=== PATIENT | female | born 1985 | race Caucasian/White ===

== ENCOUNTER 2017-09-16 07:54 | Inpatient (IN) | payer MEDICAID, OTHER ==
[~2017-09-16] VITALS: Ht 180.3 cm; Wt 113.4 kg
[2017-09-16] MEDS ORDERED: CARBOPROST TROMETHAMINE 250 MCG/ML AMPUL IM PRN (08:30)
[2017-09-16] MEDS ORDERED: NALOXONE HCL 0.4 MG/ML 1ML VIAL IM PRN (08:30)
[2017-09-16] MEDS ORDERED: METHYLERGONOVINE MALEATE 0.2 MG/ML IM PRN (08:30)
[2017-09-16] MEDS: LACTATED RINGERS 1,000 ML IV SCH ×2 (09:08→10:04)
[2017-09-16 09:45] LABS: CLARITY URINE HAZY (CLEAR); COLOR URINE YELLOW (YELLOW); GLUCOSE URINE NEGATIVE (NEGATIVE); KETONES URINE NEGATIVE (NEGATIVE); LEUKOCYTE ESTERASE URINE 3+ (NEGATIVE); NITRITE URINE NEGATIVE (NEGATIVE); OCCULT BLOOD URINE NEGATIVE (NEGATIVE); PROTEIN URINE TRACE (NEGATIVE); SPECIFIC GRAVITY URINE 1.025 (1.005-1.030); UROBILINOGEN URINE 0.2 E.U./dL (0.2-1.0)
[2017-09-16 10:00] LABS: BASOPHILS % 0.5 % (0.0-2.0); EOSINOPHILS % 1.6 % (0.0-5.0); HEMATOCRIT. 32.4 % (36.0-48.0); HEMOGLOBIN. 10.3 g/dL (12.0-16.0); LYMPHOCYTES % 16.4 % (20.0-50.0); MEAN CORPUSCULAR HEMOGLOBIN 21.9 pg (28.0-32.0); MEAN CORPUSCULAR VOLUME 68.6 fL (81.0-99.0); MEAN PLATELET VOLUME 8.4 fl (7.4-10.4); MONOCYTES % 7.5 % (2.0-8.0); PLATELET 246 x1000/uL (130-400); RED BLOOD CELL COUNT 4.73 mill/uL (4.2-5.4)
[2017-09-16 10:02] LABS: CARBON DIOXIDE 19 mEq/L (21-32); CHLORIDE 108 mEq/L (98-107)
[2017-09-16 10:07] LABS: D-DIMER 0.96 mg/L FEU (<0.50); PARTIAL THROMBOPLASTIN TIME 27.9 sec (23.4-31.0); PROTHROMBIN TIME 10.5 sec (9.4-11.6)
[2017-09-16 10:15] LABS: *AMPHETAMINES SCREEN URINE NEGATIVE (NEGATIVE); *BARBITURATES SCREEN URINE NEGATIVE (NEGATIVE); *BENZODIAZEPINES SCREEN URINE NEGATIVE (NEGATIVE); *COCAINE SCREEN URINE NEGATIVE (NEGATIVE); CANNABINOID URINE SCREEN NEGATIVE (NEGATIVE); METHADONE URINE SCREEN NEGATIVE (NEGATIVE); OPIATES URINE SCREEN NEGATIVE (NEGATIVE); PHENCYCLIDINE URINE SCREEN NEGATIVE (NEGATIVE)
[2017-09-16 10:37] LABS: PLATELET ESTIMATE NORMAL
[2017-09-16] MEDS ORDERED: ONDANSETRON HCL 4MG/2ML VIAL ONE (11:02)
[2017-09-16] MEDS ORDERED: SODIUM CHLORIDE 0.9% 10ML VIAL ONE (11:02)
[2017-09-16] MEDS ORDERED: CEFAZOLIN SODIUM 1000MG/VIAL ONE (11:02)
[2017-09-16] MEDS ORDERED: OXYTOCIN 10 UNITS/ML 1ML ONE (11:02)
[2017-09-16] MEDS ORDERED: EPHEDRINE SULFATE 50MG/ML VIAL ONE (11:03)
[2017-09-16] MEDS ORDERED: KETOROLAC 60MG/2ML VIAL IM ONE (11:03)
[2017-09-16] MEDS ORDERED: FENTANYL CITRATE/PF 50MCG/ML 2ML VIAL ONE (11:05)
[2017-09-16] MEDS ORDERED: MORPHINE SULFATE/PF 1MG/ML 10ML AMP ONE (11:05)
[2017-09-16] MEDS ORDERED: DEXT 5%/LR + PITOCIN 20UNITS/L 1,000 ML IV SCH (12:20)
[2017-09-16] MEDS ORDERED: RHO(D) IMMUNE GLOBULIN 300 MCG/SYR IM PRN (12:30)
[2017-09-16] MEDS ORDERED: IBUPROFEN 400MG TABLET PO PRN (12:30)
[2017-09-16] MEDS ORDERED: HYDROMORPHONE HCL/PF 2MG/ML CPJ IM PRN (12:30)
[2017-09-16] MEDS ORDERED: BISACODYL 10MG SUPP PR PRN (12:30)
[2017-09-16] MEDS ORDERED: HYDROCODONE/ACETAMINOPHEN 5/325MG TABLET PO PRN (12:30)
[2017-09-16 12:44] LABS: RUBELLA IGG 98.1 IU/mL (4.99-10)
[2017-09-16 12:45] LABS: HEPATITIS B SURFACE ANTIGEN NEGATIVE
[2017-09-16] MEDS ORDERED: ONDANSETRON HCL 4MG/2ML VIAL IV PRN (13:00)
[2017-09-16] MEDS ORDERED: DIPHENHYDRAMINE 50MG/ML VIAL IM PRN (13:00)
[2017-09-16] MEDS ORDERED: NALOXONE HCL 0.4 MG/ML 1ML VIAL IV PRN (13:00)
[2017-09-16] MEDS ORDERED: BUTORPHANOL TARTRATE 2 MG/ML VIAL IV PRN (13:00)
[2017-09-16] MEDS: DEXT 5%/LR + PITOCIN 20UNITS/L 1,000 ML IV SCH ×2 (13:00→23:06)
[2017-09-16 14:50] VITALS: BP 127/63
[2017-09-16 15:10] VITALS: BP 137/75
[2017-09-16] MEDS: KETOROLAC 30MG/ML VIAL IV PRN ×2 (16:24→21:35)
[2017-09-16 19:30] VITALS: BP 129/80
[2017-09-17 00:01] VITALS: BP 118/82
[2017-09-17 04:20] VITALS: BP 119/62
[2017-09-17] MEDS: KETOROLAC 30MG/ML VIAL IV PRN (06:45)
[2017-09-17 07:02] LABS: BASOPHILS % 0.2 % (0.0-2.0); EOSINOPHILS % 1.5 % (0.0-5.0); HEMATOCRIT. 25.5 % (36.0-48.0); HEMOGLOBIN. 8.2 g/dL (12.0-16.0); LYMPHOCYTES % 17.8 % (20.0-50.0); MEAN CORPUSCULAR HEMOGLOBIN 22.1 pg (28.0-32.0); MEAN CORPUSCULAR VOLUME 68.7 fL (81.0-99.0); MEAN PLATELET VOLUME 7.9 fl (7.4-10.4); MONOCYTES % 7.9 % (2.0-8.0); NEUTROPHILS % 72.6 % (40.0-76.0); PLATELET 162 x1000/uL (130-400); RED BLOOD CELL COUNT 3.72 mill/uL (4.2-5.4); RED CELL DISTRIBUTION WIDTH 18.2 % (11.6-14.6)
[2017-09-17 07:25] VITALS: BP 113/70
[2017-09-17] MEDS ORDERED: TETANUS, DIPHTHERIA, PERTUSSIS VAC/PF 0.5ML (>7YR OLD) IM ONE (10:00)
[2017-09-17 12:00] VITALS: BP 130/72
[2017-09-17] MEDS: IBUPROFEN 800MG TABLET PO PRN ×2 (13:27→22:08)
[2017-09-17 16:05] VITALS: BP 114/71
[2017-09-17 20:40] VITALS: BP 130/82
[2017-09-18 04:45] VITALS: BP 118/75
[2017-09-18 08:30] VITALS: BP 125/70
[2017-09-18 16:54] VITALS: BP 129/81
[2017-09-18 19:30] VITALS: BP 115/75
== END 2017-09-18 19:45 | disposition home or self-care (01) | DRG 540 ==
LOC: L&D 07:54 → OBSVTOIN 07:54 → 7EST PP/OB 16:18
PROVIDERS: ADMIT Obstetrics & Gynecology; ATTEND Obstetrics & Gynecology
PROC: 10D00Z1 Extraction of Products of Conception, Low, Open Approach (ICD-10-PCS; principal; 2017-09-16 12:18)
DX: O34.219 Maternal care for unspecified type scar from previous cesarean delivery (principal); O24.420 Gestational diabetes mellitus in childbirth, diet controlled; D64.9 Anemia, unspecified; O69.81X0 Labor and delivery complicated by cord around neck, without compression, not applicable or unspecified; O99.02 Anemia complicating childbirth; O99.824 Streptococcus B carrier state complicating childbirth; Z37.0 Single live birth; Z3A.39 39 weeks gestation of pregnancy
CPT/HCPCS: 36415; 80053; 80305; 81001; 84550; 85025; 85379; 85610; 85730; 86592; 86703; 86762; 86850; 86900; 86920; 87340; 88307; A4216; J0171; J0690; J1885; J2274; J2405; J2590; J3010; J7120; A4315

== ENCOUNTER 2017-10-10 08:28 | Emergency (ER) | payer MEDICAID ==
[~2017-10-10] VITALS: Ht 180.3 cm; Wt 106.9 kg
[2017-10-10] MEDS ORDERED: MAGNESIUM/ALUMINUM HYDROXIDE/SIMETHICONE 30ML UDC PO ONE (09:15)
[2017-10-10] MEDS ORDERED: ONDANSETRON 4MG ODT PO ONE (09:15)
[2017-10-10] MEDS ORDERED: FAMOTIDINE 20MG TABLET PO ONE (09:15)
[2017-10-10 09:22] LABS: BASOPHILS % 0.4 % (0.0-2.0); EOSINOPHILS % 1.1 % (0.0-5.0); HEMATOCRIT. 36.2 % (36.0-48.0); HEMOGLOBIN. 11.6 g/dL (12.0-16.0); LYMPHOCYTES % 12.2 % (20.0-50.0); MEAN CORPUSCULAR HEMOGLOBIN 21.6 pg (28.0-32.0); MEAN CORPUSCULAR VOLUME 67.5 fL (81.0-99.0); MEAN PLATELET VOLUME 7.8 fl (7.4-10.4); NEUTROPHILS % 81.3 % (40.0-76.0); PLATELET 415 x1000/uL (130-400); RED BLOOD CELL COUNT 5.37 mill/uL (4.2-5.4); RED CELL DISTRIBUTION WIDTH 18.3 % (11.6-14.6)
[2017-10-10 09:25] LABS: CLARITY URINE CLEAR (CLEAR); COLOR URINE YELLOW (YELLOW); GLUCOSE URINE NEGATIVE (NEGATIVE); KETONES URINE NEGATIVE (NEGATIVE); LEUKOCYTE ESTERASE URINE TRACE (NEGATIVE); NITRITE URINE NEGATIVE (NEGATIVE); OCCULT BLOOD URINE NEGATIVE (NEGATIVE); PH URINE 5.5 (4.5-8.0); PROTEIN URINE 1+ (NEGATIVE); SPECIFIC GRAVITY URINE 1.023 (1.005-1.030); UROBILINOGEN URINE 0.2 E.U./dL (0.2-1.0)
[2017-10-10 09:35] LABS: CARBON DIOXIDE 24 mEq/L (21-32); CHLORIDE 105 mEq/L (98-107)
[2017-10-10 09:59] LABS: PLATELET ESTIMATE INCREASED
[2017-10-10] MEDS ORDERED: ONDANSETRON HCL 4MG/2ML VIAL IV ONE (10:15)
[2017-10-10] MEDS ORDERED: FAMOTIDINE 20MG/2ML VIAL IV ONE (10:15)
[2017-10-10] MEDS ORDERED: SODIUM CHLORIDE 0.9% 1,000 ML IV ONE (10:15)
[2017-10-10] MEDS ORDERED: DIPHENHYDRAMINE 50MG/ML VIAL IV ONE (11:00)
[2017-10-10] MEDS ORDERED: METOCLOPRAMIDE HCL 10MG/2ML VIAL IV ONE (11:00)
[2017-10-10] MEDS ORDERED: MORPHINE SULFATE 10 MG/ML CPJ IV NR (12:00)
[2017-10-10] MEDS ORDERED: ONDANSETRON HCL 4MG/2ML VIAL IV NR (12:00)
[2017-10-10 14:06] VITALS: BP 142/88
== END 2017-10-10 14:09 | disposition home or self-care (01) ==
LOC: ER 08:36
DX: K80.20 Calculus of gallbladder without cholecystitis without obstruction (principal); K21.9 Gastro-esophageal reflux disease without esophagitis; I10 Essential (primary) hypertension
CPT/HCPCS: 36415; 76705; 80053; 81001; 83690; 85025; 96361; 96374; 96375; 96376; 99285; J1200; J2270; J2405; J2765; J3490; J7030; Q0162; Z7610

== ENCOUNTER 2020-06-25 13:31 | Emergency (ER) | payer MEDICAID ==
[~2020-06-25] VITALS: Ht 180.3 cm; Wt 111.0 kg
[2020-06-25] MEDS ORDERED: FAMOTIDINE 20MG TABLET PO ONE (14:00)
[2020-06-25] MEDS ORDERED: DIPHENHYDRAMINE 25MG CAPSULE PO ONE (14:00)
[2020-06-25 14:16] VITALS: BP 130/78
== END 2020-06-25 14:07 | disposition home or self-care (01) ==
LOC: ER 13:31
DX: B86 Scabies (principal); I10 Essential (primary) hypertension; Z98.890 Other specified postprocedural states
CPT/HCPCS: 99283; Q0163

== ENCOUNTER 2022-09-26 11:25 | Emergency (ER) | payer MEDICAID ==
[~2022-09-26] VITALS: Ht 180.3 cm; Wt 116.0 kg
[2022-09-26] MEDS ORDERED: DEXT15DR5 EACHEYE (13:56)
[2022-09-26] MEDS ORDERED: MINE3.5O44 EACH EAR (13:56)
[2022-09-26] MEDS ORDERED: P20 MT (13:56)
[2022-09-26] MEDS ORDERED: VALA100044 MT (13:56)
[2022-09-26 14:11] VITALS: BP 127/75
== END 2022-09-26 14:14 | disposition home or self-care (01) ==
LOC: ER 11:25
DX: G51.0 Bell's palsy (principal); I10 Essential (primary) hypertension; Z98.890 Other specified postprocedural states
CPT/HCPCS: 81025; 99284

== ENCOUNTER 2025-10-01 09:21 | Emergency (ER) | payer MEDICAID, OTHER ==
[~2025-10-01] VITALS: Ht 167.6 cm; Wt 91.0 kg
[~2025-10-01 09:21] MED LIST: DEXT15DR5 EACHEYE; MINE3.5O44 EACH EAR; P20 MT; VALA100044 MT
[2025-10-01 09:30] VITALS: BP 144/93; TEMP 37; O2SAT 99
[2025-10-01 09:37] VITALS: PULSE 89; RESP 18; O2SAT 99
[2025-10-01] MEDS ORDERED: DEXT15DR5 EACHEYE (09:55)
[2025-10-01] MEDS ORDERED: P20 MT (09:55)
== END 2025-10-01 10:25 | disposition home or self-care (01) ==
LOC: ER 09:33
DX: G51.0 Bell's palsy (principal); I10 Essential (primary) hypertension
CPT/HCPCS: 99283